=== PATIENT | male | born 1960 | race Caucasian/White ===

== ENCOUNTER 2020-10-19 15:59 | Inpatient (IN) | payer MEDICAID ==
[~2020-10-19] VITALS: Ht 180.3 cm; Wt 86.0 kg
[~2020-10-19 15:59] MED LIST: ALBU6.7H9 INH; CHOL2000 PO; CLOP75TA15 PO; FURO-150 PO; LANTUS SUBCUT; LISI40TA13 PO; METO-292 PO; METO100T14 PO; PANT20TA2 PO; PHEN100C12 PO; POTA10TA19 PO; SIMV-42 PO
[2020-10-19] MEDS ORDERED: normal saline 1000ML IV soln IVB ONE ×2 (16:30→16:45)
[2020-10-19] MEDS ORDERED: famotidine/PF 10 mg/ml inj IV ONE (16:45)
[2020-10-19] MEDS ORDERED: pantoprazole 40 MG vial IV ONE (16:45)
[2020-10-19] MEDS ORDERED: haloperidol lactate 5mg/ml inj IM ONE (16:45)
[2020-10-19] MEDS ORDERED: metoclopramide 5 mg/ml inj IV PRN (16:55)
[2020-10-19] MEDS ORDERED: acetaminophen 325mg tablet PO PRN ×2 (16:55)
[2020-10-19] MEDS: normal saline 1000ml 1,000 ML IV SCH (16:55)
[2020-10-19] MEDS ORDERED: mag hydrox/Alum hydrox/simeth 30ml oral suspension PO PRN (16:55)
[2020-10-19] MEDS ORDERED: magnesium hydroxide 30ml (MOM) UD suspension PO PRN (16:55)
[2020-10-19] MEDS ORDERED: morphine 2 MG/ML inj. syringe IV PRN ×2 (16:55)
[2020-10-19] MEDS ORDERED: CLON0.2T PO (17:05)
[2020-10-19] MEDS ORDERED: FURO40TA4 PO (17:05)
[2020-10-19] MEDS ORDERED: ASPI-12 PO (17:05)
[2020-10-19] MEDS ORDERED: SUCR1TAB PO (17:05)
[2020-10-19] MEDS ORDERED: HYDR100T27 PO (17:05)
[2020-10-19] MEDS ORDERED: LIDOcaine 2% 10ml TOPICAL JELLY (Urojet) MM ONE (18:00)
[2020-10-19 18:14] LABS: HEMOGLOBIN 10.8 g/dl (14.0-17.9); NEUTROPHILS # (AUTO) 7.4 X10'3 (1.8-7.7)
[2020-10-19 18:15] LABS: BASOPHILS # (AUTO) 0.1 X10'3 (0-0.2); BASOPHILS % (AUTO) 0.7 % (0-1); EOSINOPHILS # (AUTO) 0.1 X10'3 (0-0.9); EOSINOPHILS % (AUTO) 0.7 % (0-6); HEMATOCRIT 32.2 % (42.0-52.0); LYMPHOCYTES # (AUTO) 1.1 X10'3 (1.1-4.8); MEAN CORPUSCULAR HEMOGLOBIN 29.5 PG (27.0-31.0); MEAN CORPUSCULAR HGB CONC 33.5 g/dL (33.0-36.5); MEAN CORPUSCULAR VOLUME 88.1 FL (78-98); MEAN PLATELET VOLUME 9.4 FL (7.4-10.4); MONOCYTES # (AUTO) 0.5 X10'3 (0-0.9); MONOCYTES % (AUTO) 5.4 % (2-12); NEUTROPHILS % (AUTO) 81.2 % (42-75); PLATELET COUNT 247 X10'3 (140-440); RED BLOOD COUNT 3.66 X10'6 (4.70-6.10); RED CELL DISTRIBUTION WIDTH 13.3 % (11.5-14.5); WHITE BLOOD COUNT 9.1 X10'3 (4.5-11.0)
[2020-10-19 18:33] LABS: HEMOGLOBIN A1C 7.2 % (4.5-6.2)
[2020-10-19 18:37] LABS: ALANINE AMINOTRANSFERASE 18 U/L (12-78); ALBUMIN 2.8 G/DL (3.4-5.0); ALBUMIN/GLOBULIN RATIO 0.6 (1.1-1.5); ALKALINE PHOSPHATASE 83 IU/L (46-116); ANION GAP 17 (8-16); ASPARTATE AMINO TRANSFERASE 19 U/L (10-37); BILIRUBIN,TOTAL 0.2 MG/DL (0.1-1.0); BLOOD UREA NITROGEN 86 MG/DL (7-18); BUN/CREATININE RATIO 7.1 (5.4-32.0); CHLORIDE 103 MMOL/L (99-107); CREATININE 12.12 MG/DL (0.60-1.10); GLUCOSE 103 MG/DL (70-104); POTASSIUM 4.7 MMOL/L (3.5-5.1); SODIUM 136 MMOL/L (135-145); TOTAL CARBON DIOXIDE 16.2 MMOL/L (24-32); TOTAL PROTEIN 7.5 G/DL (6.4-8.2); eGFR 4 ML/MIN
[2020-10-19 18:49] LABS: PHOSPHORUS 9.4 MG/DL (2.3-4.5)
--- NOTE | 2020-10-19 20:30 | NUR ---
Received report from Zakiya BLOOD in the Er
--- NOTE | 2020-10-19 20:50 | NUR ---
pt arrived to floor, assumed care. 1999 rx late d/t transfer from the ER
[2020-10-19 21:00] VITALS: BP 206/92
[2020-10-19] MEDS: phenytoin sod ER 100mg capsule PO SCH (21:00)
[2020-10-19] MEDS: metoprolol tartrate 50mg tablet PO SCH (21:00)
[2020-10-19] MEDS: heparin, porcine 5000 units/ml vial SQ SCH (21:00)
[2020-10-19 22:00] VITALS: BP 189/87
[2020-10-19] MEDS: cloNIDine 0.1 mg tablet PO SCH (22:29)
[2020-10-19] MEDS: sucralfate 1 gm tablet PO SCH (22:29)
[2020-10-19] MEDS: pantoprazole 40mg Tablet.DR PO SCH (22:29)
[2020-10-19] MEDS: atorvastatin 20mg tablet PO SCH (22:29)
[2020-10-19] MEDS: hydrALAZINE 25 MG tablet PO SCH (23:27)
--- NOTE | 2020-10-19 23:30 | NUR ---
When pt arrived to unit bp was 206/92. 2000RX including bp medications administered and will continue to monitor.
[2020-10-20] VITALS (7 sets, daily range): BP systolic 112–170; BP diastolic 55–76
[2020-10-20] MEDS ORDERED: glucagon, human recombinant 1mg kit SUBCUT PRN (02:25)
[2020-10-20] MEDS ORDERED: dextrose ORAL solution 15 GM/59 ML bottle PO PRN ×2 (02:25)
[2020-10-20] MEDS ORDERED: MESSAGE TO PHARMACY PO ONE (02:25)
[2020-10-20] MEDS ORDERED: dextrose 50%-water 50ml dispensing syringe IV PRN ×2 (02:25)
[2020-10-20] MEDS: normal saline 1000ml 1,000 ML IV SCH (02:29)
--- NOTE | 2020-10-20 06:27 | NUR ---
Problems reprioritized. Patient report given, questions answered & plan of care reviewed with Rose BLOOD.
[2020-10-20] MEDS: phenytoin sod ER 100mg capsule PO SCH ×3 (09:56→20:42)
[2020-10-20] MEDS: aspirin 325mg tablet, delayed-release (Ecotrin) PO SCH (10:00)
[2020-10-20] MEDS: sucralfate 1 gm tablet PO SCH ×4 (10:00→20:42)
[2020-10-20] MEDS: hydrALAZINE 25 MG tablet PO SCH ×3 (10:01→23:37)
[2020-10-20] MEDS: metoprolol tartrate 50mg tablet PO SCH ×2 (10:02→20:43)
[2020-10-20] MEDS: clopidogrel 75mg tablet PO SCH (10:02)
[2020-10-20] MEDS: heparin, porcine 5000 units/ml vial SQ SCH ×2 (10:03→20:42)
[2020-10-20] MEDS: cloNIDine 0.1 mg tablet PO SCH ×3 (10:03→20:42)
[2020-10-20 11:16] LABS: BASOPHILS # (AUTO) 0.1 X10'3 (0-0.2); BASOPHILS % (AUTO) 0.9 % (0-1); EOSINOPHILS # (AUTO) 0.2 X10'3 (0-0.9); EOSINOPHILS % (AUTO) 2.8 % (0-6); HEMATOCRIT 30.7 % (42.0-52.0); HEMOGLOBIN 10.2 g/dl (14.0-17.9); LYMPHOCYTES # (AUTO) 1.5 X10'3 (1.1-4.8); LYMPHOCYTES % (AUTO) 18.7 % (21-51); MEAN CORPUSCULAR HEMOGLOBIN 29.6 PG (27.0-31.0); MEAN CORPUSCULAR HGB CONC 33.1 g/dL (33.0-36.5); MEAN CORPUSCULAR VOLUME 89.2 FL (78-98); MEAN PLATELET VOLUME 9.7 FL (7.4-10.4); MONOCYTES # (AUTO) 0.5 X10'3 (0-0.9); MONOCYTES % (AUTO) 6.2 % (2-12); NEUTROPHILS # (AUTO) 5.8 X10'3 (1.8-7.7); NEUTROPHILS % (AUTO) 71.4 % (42-75); PLATELET COUNT 248 X10'3 (140-440); RED BLOOD COUNT 3.44 X10'6 (4.70-6.10); RED CELL DISTRIBUTION WIDTH 13.9 % (11.5-14.5); WHITE BLOOD COUNT 8.1 X10'3 (4.5-11.0)
[2020-10-20 11:40] LABS: ALANINE AMINOTRANSFERASE 15 U/L (12-78); ALBUMIN 2.4 G/DL (3.4-5.0); ALBUMIN/GLOBULIN RATIO 0.5 (1.1-1.5); ALKALINE PHOSPHATASE 73 IU/L (46-116); ANION GAP 17 (8-16); ASPARTATE AMINO TRANSFERASE 13 U/L (10-37); BILIRUBIN,TOTAL 0.2 MG/DL (0.1-1.0); BLOOD UREA NITROGEN 85 MG/DL (7-18); CALCIUM 7.7 MG/DL (8.5-10.1); CHLORIDE 106 MMOL/L (99-107); CREATININE 12.06 MG/DL (0.60-1.10); GLUCOSE 90 MG/DL (70-104); MAGNESIUM 1.7 MG/DL (1.5-2.4); PHOSPHORUS 9.1 MG/DL (2.3-4.5); POTASSIUM 4.4 MMOL/L (3.5-5.1); SODIUM 139 MMOL/L (135-145); TOTAL CARBON DIOXIDE 16.5 MMOL/L (24-32); TOTAL PROTEIN 6.8 G/DL (6.4-8.2); eGFR 4 ML/MIN
[2020-10-20] MEDS: HYDROcodone/acetaminophen 5mg/325mg tablet PO PRN ×2 (11:42→16:46)
[2020-10-20] MEDS: sodium bicarbonate (8.4%) inj. 150 MEQ in dextrose 5%-water 1,000 ML IV SCH ×2 (12:00→23:31)
[2020-10-20] MEDS: ondansetron/PF 4mg/2ml inj IV PRN (12:32)
--- NOTE | 2020-10-20 15:54 | NUR ---
Pt with A1c 7.2% seen at bedside. Written DM education with RD contact information provided. Pt denies any questions about DM management at this time. Pt on a renal diet with poor PO intake, documented with 0% PO intake of meals with 100% PO intake of milk only. Pt reports a low appetite that has been ongoing for months. Pt unsure if he's has any weight loss or what his ABW is, reports UBW is 190 lbs. Current documented wt is 198 lbs using a bed scale. Pt with no visible fat or muscle wasting. RD obtained food preferences and d/w dietary, pt dislikes tomatoes and carrots. RD assisted pt with menu selection for dinner tonight. Pt requesting milk with dinner, RD educated patient on milk limitations given current renal status, pt verbalized understanding. Pt denies food allergies or difficulty chewing/swallowing. N/V improving per pt. Recommend continuing renal diet given current kidney status, BG range of 80-103 mg/dL since admit, and poor PO intake. Will continue to follow closely and make recommendations as appropriate. Addendum: 10/20/20 at [address] Amended: Links added.
[2020-10-20 16:50] LABS: CLARITY,URINE CLOUDY (Clear); COLOR,URINE YELLOW (Yellow); GLUCOSE, URINE 100 mg/dl (Neg); KETONES,URINE NEGATIVE (Neg); LEUKOCYTE ESTERASE ,URINE SMALL (Neg); NITRITES, URINE NEGATIVE (Neg); OCCULT BLOOD,URINE TRACE-INTACT (Neg); PROTEIN,URINE >=300 mg/dl (Neg); UROBILINOGEN,URINE 0.2 E.U/dL (0.2-1.0)
[2020-10-20 16:58] LABS: UA COLLECTION TYPE NON-SPECIFIED
[2020-10-20 16:59] LABS: RBC,URINE 0-2 /HPF (0-2); TOTAL PROTEIN,URINE RANDOM 606.7 MG/DL; WBC,URINE 50-100 /HPF (0-4)
[2020-10-20 17:00] LABS: AMORPHOUS URATES 1+; BACTERIA,URINE 1+ /HPF (Neg)
[2020-10-20 17:01] LABS: COARSE GRANULAR CAST 0-3 /LPF (NEGATIVE); SQUAMOUS EPITHELIAL CELL,UR FEW /LPF (FEW); WBC CLUMPS,URINE MODERATE /HPF (NEGATIVE)
--- NOTE | 2020-10-20 18:30 | NUR ---
Patient in room PCU 3012. I have received report from Rose BLOOD/ Jasiel BLOOD and had the opportunity to ask questions and assume patient care.
--- NOTE | 2020-10-20 20:40 | NUR ---
refused orthostatic vitals tonight Addendum: 10/21/20 at 0252 by Niki Mota RN Amended: Links added.
[2020-10-20] MEDS: pantoprazole 40mg Tablet.DR PO SCH (20:42)
[2020-10-20] MEDS: atorvastatin 20mg tablet PO SCH (20:42)
[2020-10-20] MEDS: insulin glargine (Lantus) pen - multi-dose SQ SCH (20:50)
--- NOTE | 2020-10-20 20:51 | NUR ---
Patient BS was 189 HS. With dinner BS 161 patient has met protocol but refusing to have insulin given.
[2020-10-21] VITALS (7 sets, daily range): BP systolic 121–156; BP diastolic 61–86
[2020-10-21] MEDS: ondansetron/PF 4mg/2ml inj IV PRN ×3 (02:32→16:02)
[2020-10-21] MEDS: sodium bicarbonate (8.4%) inj. 150 MEQ in dextrose 5%-water 1,000 ML IV SCH ×2 (02:50→08:29)
--- NOTE | 2020-10-21 06:12 | NUR ---
Problems reprioritized. Patient report given, questions answered & plan of care reviewed with Lenore RN.
--- NOTE | 2020-10-21 06:37 | NUR ---
Patient in room PCU 3012. I have received report from [facility] and had the opportunity to ask questions and assume patient care.
[2020-10-21 06:41] LABS: BASOPHILS % (AUTO) 0.7 % (0-1); EOSINOPHILS # (AUTO) 0.3 X10'3 (0-0.9); EOSINOPHILS % (AUTO) 3.7 % (0-6); HEMATOCRIT 28.8 % (42.0-52.0); HEMOGLOBIN 9.7 g/dl (14.0-17.9); LYMPHOCYTES # (AUTO) 1.1 X10'3 (1.1-4.8); LYMPHOCYTES % (AUTO) 15.6 % (21-51); MEAN CORPUSCULAR HEMOGLOBIN 29.6 PG (27.0-31.0); MEAN CORPUSCULAR HGB CONC 33.7 g/dL (33.0-36.5); MEAN PLATELET VOLUME 9.6 FL (7.4-10.4); MONOCYTES # (AUTO) 0.5 X10'3 (0-0.9); MONOCYTES % (AUTO) 7.4 % (2-12); NEUTROPHILS # (AUTO) 5.2 X10'3 (1.8-7.7); NEUTROPHILS % (AUTO) 72.6 % (42-75); PLATELET COUNT 224 X10'3 (140-440); RED BLOOD COUNT 3.28 X10'6 (4.70-6.10); RED CELL DISTRIBUTION WIDTH 13.4 % (11.5-14.5); WHITE BLOOD COUNT 7.2 X10'3 (4.5-11.0)
[2020-10-21 06:53] LABS: ALBUMIN 2.2 G/DL (3.4-5.0); ANION GAP 15 (8-16); BLOOD UREA NITROGEN 85 MG/DL (7-18); BUN/CREATININE RATIO 6.9 (5.4-32.0); CALCIUM 7.4 MG/DL (8.5-10.1); CHLORIDE 101 MMOL/L (99-107); CREATININE 12.25 MG/DL (0.60-1.10); GLUCOSE 195 MG/DL (70-104); MAGNESIUM 1.7 MG/DL (1.5-2.4); PHOSPHORUS 7.8 MG/DL (2.3-4.5); POTASSIUM 3.4 MMOL/L (3.5-5.1); SODIUM 135 MMOL/L (135-145); TOTAL CARBON DIOXIDE 19.5 MMOL/L (24-32); eGFR 4 ML/MIN
[2020-10-21] MEDS: metoprolol tartrate 50mg tablet PO SCH ×2 (08:00→20:08)
[2020-10-21] MEDS: cloNIDine 0.1 mg tablet PO SCH ×3 (08:20→20:09)
[2020-10-21] MEDS: aspirin 325mg tablet, delayed-release (Ecotrin) PO SCH (08:20)
[2020-10-21] MEDS: sucralfate 1 gm tablet PO SCH ×4 (08:20→20:06)
[2020-10-21] MEDS: hydrALAZINE 25 MG tablet PO SCH ×2 (08:21→16:01)
[2020-10-21] MEDS: phenytoin sod ER 100mg capsule PO SCH ×3 (08:21→20:09)
[2020-10-21] MEDS: clopidogrel 75mg tablet PO SCH (08:21)
[2020-10-21] MEDS: heparin, porcine 5000 units/ml vial SQ SCH ×2 (08:24→20:08)
[2020-10-21] MEDS ORDERED: nicotine 14mg patch - 24hr TD ONE (10:30)
[2020-10-21 11:12] LABS: PHENYTOIN (DILANTIN) 1.6 UG/ML (10.0-20.0)
[2020-10-21] MEDS: metoclopramide 5 mg/ml inj IV PRN (11:49)
--- NOTE | 2020-10-21 12:24 | NUR ---
Dr. Manrique rounded on patient. Verbal order given to stop IV fluids. IV fluids DC'd and taken down.
--- NOTE | 2020-10-21 12:38 | NUR ---
PT SEEN BY ATTENDING AND NEPHRO , BOTH AWARE OF POTASSIUM 3.4 NO NEW ORDERS. PT IVF STOPPED AND ORDERS PLACED TO HAVE A DIALYSIS ACCESS PLACED AND START HEMODIALYSIS . CALL MELO IN REACH WILL MONITOR
[2020-10-21] MEDS: insulin Lispro (HumaLOG) vial - multi-dose SQ SCH ×2 (14:30→20:15)
[2020-10-21] MEDS: HYDROcodone/acetaminophen 5mg/325mg tablet PO PRN (16:02)
--- NOTE | 2020-10-21 17:45 | NUR ---
End of shift rounds completed . pt asleep , resp even and labored. pt still awaiting for dialysis access and treatment . poor appetite due to nausea. call rosen in reach will monitor
--- NOTE | 2020-10-21 18:00 | NUR ---
Patient in room PCU 3012. I have received report from Lenore RN and had the opportunity to ask questions and assume patient care.
[2020-10-21] MEDS: atorvastatin 20mg tablet PO SCH (20:08)
[2020-10-21] MEDS: pantoprazole 40mg Tablet.DR PO SCH (20:09)
[2020-10-21] MEDS: insulin glargine (Lantus) pen - multi-dose SQ SCH (22:17)
[2020-10-22] VITALS (7 sets, daily range): BP systolic 103–149; BP diastolic 48–77
[2020-10-22] MEDS: hydrALAZINE 25 MG tablet PO SCH ×3 (00:50→16:00)
[2020-10-22] MEDS: metoclopramide 5 mg/ml inj IV PRN (05:13)
--- NOTE | 2020-10-22 06:23 | NUR ---
Patient in room PCU 3012. I have received report from Kary and had the opportunity to ask questions and assume patient care.
--- NOTE | 2020-10-22 06:23 | NUR ---
Problems reprioritized. Patient report given, questions answered & plan of care reviewed with Lenore RN.
[2020-10-22 06:44] LABS: BASOPHILS % (AUTO) 0.6 % (0-1); EOSINOPHILS # (AUTO) 0.2 X10'3 (0-0.9); EOSINOPHILS % (AUTO) 2.5 % (0-6); HEMATOCRIT 28.7 % (42.0-52.0); HEMOGLOBIN 9.9 g/dl (14.0-17.9); LYMPHOCYTES # (AUTO) 0.9 X10'3 (1.1-4.8); LYMPHOCYTES % (AUTO) 12.3 % (21-51); MEAN CORPUSCULAR HEMOGLOBIN 29.8 PG (27.0-31.0); MEAN CORPUSCULAR HGB CONC 34.4 g/dL (33.0-36.5); MEAN CORPUSCULAR VOLUME 86.8 FL (78-98); MEAN PLATELET VOLUME 9.7 FL (7.4-10.4); MONOCYTES # (AUTO) 0.6 X10'3 (0-0.9); MONOCYTES % (AUTO) 7.3 % (2-12); NEUTROPHILS # (AUTO) 5.9 X10'3 (1.8-7.7); NEUTROPHILS % (AUTO) 77.3 % (42-75); PLATELET COUNT 225 X10'3 (140-440); RED CELL DISTRIBUTION WIDTH 13.5 % (11.5-14.5); WHITE BLOOD COUNT 7.7 X10'3 (4.5-11.0)
[2020-10-22 07:10] LABS: ALBUMIN 2.3 G/DL (3.4-5.0); ANION GAP 14 (8-16); BLOOD UREA NITROGEN 82 MG/DL (7-18); BUN/CREATININE RATIO 6.6 (5.4-32.0); CALCIUM 7.8 MG/DL (8.5-10.1); CHLORIDE 99 MMOL/L (99-107); GLUCOSE 143 MG/DL (70-104); MAGNESIUM 1.8 MG/DL (1.5-2.4); PHOSPHORUS 7.8 MG/DL (2.3-4.5); POTASSIUM 3.6 MMOL/L (3.5-5.1); SODIUM 136 MMOL/L (135-145); TOTAL CARBON DIOXIDE 22.6 MMOL/L (24-32); eGFR 4 ML/MIN
[2020-10-22] MEDS: aspirin 325mg tablet, delayed-release (Ecotrin) PO SCH (08:00)
[2020-10-22] MEDS: heparin, porcine 5000 units/ml vial SQ SCH ×2 (08:00→19:08)
[2020-10-22] MEDS: clopidogrel 75mg tablet PO SCH (08:00)
[2020-10-22] MEDS: sucralfate 1 gm tablet PO SCH ×4 (08:00→21:17)
[2020-10-22] MEDS: phenytoin sod ER 100mg capsule PO SCH ×3 (08:50→21:17)
[2020-10-22] MEDS: cloNIDine 0.1 mg tablet PO SCH ×3 (08:50→21:17)
[2020-10-22] MEDS: metoprolol tartrate 50mg tablet PO SCH ×2 (08:51→19:08)
[2020-10-22] MEDS: nicotine 14mg patch - 24hr TD SCH (08:51)
[2020-10-22] MEDS: ondansetron/PF 4mg/2ml inj IV PRN (08:52)
[2020-10-22] MEDS: insulin Lispro (HumaLOG) vial - multi-dose SQ SCH ×2 (09:05→19:17)
[2020-10-22] MEDS ORDERED: heparin 1,000unit/ml 10ml vial 10 ML ONE (09:57)
[2020-10-22] MEDS ORDERED: LIDOcaine 1%/PF 5ML 10 MG/ML VIAL ONE (09:57)
[2020-10-22] MEDS ORDERED: midazolam 2 mg/2 ml injection ONE (09:57)
[2020-10-22] MEDS ORDERED: fentaNYL/PF 50MCG/1 ML 2ML syringe ONE (09:58)
--- NOTE | 2020-10-22 10:30 | NUR ---
pt being transported to angio room for tdc placement
[2020-10-22] MEDS ORDERED: ondansetron/PF 4mg/2ml inj ONE (10:33)
[2020-10-22] MEDS ORDERED: normal saline 1000ml 250 ML IV PRN (11:50)
[2020-10-22] MEDS ORDERED: heparin 1,000unit/ml 10ml vial 10 ML IV ONE (11:50)
[2020-10-22] MEDS ORDERED: heparin 1,000 units/ml 10ml inj HE ONE ×2 (11:55)
--- NOTE | 2020-10-22 12:24 | NUR ---
pt noted to be bleeding from TdC access. pressure gauze applied and angio team notified . will come up and access
[2020-10-22] MEDS: HYDROcodone/acetaminophen 5mg/325mg tablet PO PRN (17:42)
--- NOTE | 2020-10-22 18:45 | NUR ---
Patient in room PCU 3012. I have received report from JEREMI Grover and had the opportunity to ask questions and assume patient care.
[2020-10-22] MEDS: atorvastatin 20mg tablet PO SCH (21:16)
[2020-10-22] MEDS: pantoprazole 40mg Tablet.DR PO SCH (21:17)
[2020-10-22] MEDS: insulin glargine (Lantus) pen - multi-dose SQ SCH (21:23)
[2020-10-23] VITALS (8 sets, daily range): BP systolic 88–149; BP diastolic 55–84
--- NOTE | 2020-10-23 06:18 | NUR ---
Problems reprioritized. Patient report given, questions answered & plan of care reviewed with JEREMI Grover.
--- NOTE | 2020-10-23 06:26 | NUR ---
Patient in room PCU 3012. I have received report from Yolanda and had the opportunity to ask questions and assume patient care.
[2020-10-23 06:58] LABS: BASOPHILS # (AUTO) 0.1 X10'3 (0-0.2); BASOPHILS % (AUTO) 0.6 % (0-1); EOSINOPHILS # (AUTO) 0.3 X10'3 (0-0.9); EOSINOPHILS % (AUTO) 3.3 % (0-6); HEMATOCRIT 29.4 % (42.0-52.0); HEMOGLOBIN 10.1 g/dl (14.0-17.9); LYMPHOCYTES # (AUTO) 1.4 X10'3 (1.1-4.8); LYMPHOCYTES % (AUTO) 15.4 % (21-51); MEAN CORPUSCULAR HEMOGLOBIN 29.8 PG (27.0-31.0); MEAN CORPUSCULAR HGB CONC 34.4 g/dL (33.0-36.5); MEAN CORPUSCULAR VOLUME 86.4 FL (78-98); MEAN PLATELET VOLUME 9.8 FL (7.4-10.4); MONOCYTES # (AUTO) 0.8 X10'3 (0-0.9); MONOCYTES % (AUTO) 9.6 % (2-12); NEUTROPHILS # (AUTO) 6.3 X10'3 (1.8-7.7); NEUTROPHILS % (AUTO) 71.1 % (42-75); PLATELET COUNT 217 X10'3 (140-440); RED CELL DISTRIBUTION WIDTH 13.6 % (11.5-14.5); WHITE BLOOD COUNT 8.8 X10'3 (4.5-11.0)
[2020-10-23 07:34] LABS: ALBUMIN 2.4 G/DL (3.4-5.0); ANION GAP 11 (8-16); BLOOD UREA NITROGEN 47 MG/DL (7-18); BUN/CREATININE RATIO 5.3 (5.4-32.0); CHLORIDE 100 MMOL/L (99-107); CREATININE 8.89 MG/DL (0.60-1.10); GLUCOSE 124 MG/DL (70-104); MAGNESIUM 1.8 MG/DL (1.5-2.4); POTASSIUM 3.8 MMOL/L (3.5-5.1); SODIUM 137 MMOL/L (135-145); TOTAL CARBON DIOXIDE 26.4 MMOL/L (24-32); eGFR 6 ML/MIN
[2020-10-23] MEDS: phenytoin sod ER 100mg capsule PO SCH ×3 (07:54→20:48)
[2020-10-23] MEDS: aspirin 325mg tablet, delayed-release (Ecotrin) PO SCH (07:55)
[2020-10-23] MEDS: metoprolol tartrate 50mg tablet PO SCH ×2 (07:55→20:00)
[2020-10-23] MEDS: hydrALAZINE 25 MG tablet PO SCH ×3 (07:55→17:07)
[2020-10-23] MEDS: cloNIDine 0.1 mg tablet PO SCH ×3 (07:55→20:47)
[2020-10-23] MEDS: clopidogrel 75mg tablet PO SCH (07:56)
[2020-10-23] MEDS: sucralfate 1 gm tablet PO SCH ×4 (07:56→20:48)
[2020-10-23] MEDS: ondansetron/PF 4mg/2ml inj IV PRN (07:56)
[2020-10-23] MEDS: nicotine 14mg patch - 24hr TD SCH (07:57)
[2020-10-23] MEDS: heparin, porcine 5000 units/ml vial SQ SCH ×2 (07:57→19:22)
[2020-10-23] MEDS ORDERED: heparin 1,000unit/ml 10ml vial 10 ML IV ONE (09:10)
[2020-10-23] MEDS ORDERED: normal saline 1000ml 250 ML IV PRN (09:10)
[2020-10-23] MEDS ORDERED: heparin 1,000 units/ml 10ml inj HE ONE ×2 (09:15)
--- NOTE | 2020-10-23 14:14 | NUR ---
nurse in on rounds and pt stated he didnt want his meds at this time , feels nauseated . pt wants to try to wait
--- NOTE | 2020-10-23 15:17 | NUR ---
Initial: Patient is transfer from [facility]. Phosphorus is trending down from 9.4 to 5; on renal/carb controlled diet. S/p placement of TDC for HD d/t chronic renal failure. Admit with tubular necrosis, h/o HTN, DM, HLD, CAD per MD progress note. Eating 0-25% of meals, visited patient at bedside and observed that he ate 25% of protein. Patient states he has snacks throughout the day and does not eat large meals with his largest meal being a bowl of cereal. States that he is not hungry, however did receive anti nausea medication this morning. Pt requested to be seen by dietary d/t not being able to read his menu, d/w dietary. Pt also information to give to his sister regarding nutrition and dialysis, provided written handout and RD contact information. Recommend: 1. continue renal/carb controlled diet 2. weight per rx 3. bowel care as needed Addendum: 10/23/20 at [address] Amended: Links added.
[2020-10-23] MEDS: HYDROcodone/acetaminophen 5mg/325mg tablet PO PRN (15:27)
--- NOTE | 2020-10-23 16:03 | NUR ---
PAGER ID: [phone] MESSAGE: pcu [id number] (QUIANA) FINALLY GOT AN ORTHOSTATIC BP ON HIM AND HIS STANDING DROPS DOWN TREMENDOUSLY. results in computer
--- NOTE | 2020-10-23 17:40 | NUR ---
End of shift rounds completed. pt tolerated dialysis . med as needed for pain and nausea. pt occassionally will refuse meds. md notified of ortho bp's . call rosen in reach will monitor
--- NOTE | 2020-10-23 18:39 | NUR ---
Patient in room PCU 3012. I have received report from JEREMI Grover and had the opportunity to ask questions and assume patient care.
--- NOTE | 2020-10-23 19:00 | NUR ---
rec'd a phone call from pt family stating he was very anxious and wanted to leave. he stated he was feeling very antsy, like he needs to get out of here. Notified MD, awaiting return call or orders
[2020-10-23] MEDS ORDERED: haloperidol 5mg tablet PO ONE (19:20)
[2020-10-23] MEDS ORDERED: sertraline 50mg tablet PO ONE (19:20)
[2020-10-23] MEDS: insulin Lispro (HumaLOG) vial - multi-dose SQ SCH (19:32)
[2020-10-23] MEDS: pantoprazole 40mg Tablet.DR PO SCH (20:48)
[2020-10-23] MEDS: atorvastatin 20mg tablet PO SCH (20:48)
[2020-10-23 20:53] LABS: A/G RATIO 0.7 (0.7-1.7); ALBUMIN 2.3 g/dL (2.9-4.4); BETA GLOBULIN 0.8 g/dL (0.7-1.3); GLOBULIN, TOTAL 3.1 g/dL (2.2-3.9); M-SPIKE Not Observed g/dL (Not Observed); PROTEIN, TOTAL, SERUM 5.4 g/dL (6.0-8.5)
[2020-10-23] MEDS: insulin glargine (Lantus) pen - multi-dose SQ SCH (20:56)
--- NOTE | 2020-10-23 22:28 | NUR ---
Orthostatic Vitals Unable to complete the standing portion of the orthostatic vitals. He was feeling dizzy and nauseous.
[2020-10-24] VITALS (8 sets, daily range): BP systolic 85–169; BP diastolic 38–82
--- NOTE | 2020-10-24 00:30 | NUR ---
Pt was sweating and lethargic, checked blood glucose. BG was 43. Administered 50mL of Dextrose IV. Checked again 15 min later, BG was 167. checked again in 30 min, BG was 155.
[2020-10-24] MEDS: hydrALAZINE 25 MG tablet PO SCH ×3 (03:31→16:43)
--- NOTE | 2020-10-24 06:06 | NUR ---
Problems reprioritized. Patient report given, questions answered & plan of care reviewed with JEREMI Grover.
[2020-10-24] MEDS: phenytoin sod ER 100mg capsule PO SCH ×3 (07:30→21:09)
[2020-10-24] MEDS: sertraline 50mg tablet PO SCH (07:31)
[2020-10-24] MEDS: cloNIDine 0.1 mg tablet PO SCH ×3 (07:31→21:00)
[2020-10-24] MEDS: clopidogrel 75mg tablet PO SCH (07:32)
[2020-10-24] MEDS: nicotine 14mg patch - 24hr TD SCH (07:32)
[2020-10-24] MEDS: aspirin 325mg tablet, delayed-release (Ecotrin) PO SCH (07:32)
[2020-10-24] MEDS: metoprolol tartrate 50mg tablet PO SCH ×2 (07:32→21:07)
[2020-10-24] MEDS: heparin, porcine 5000 units/ml vial SQ SCH ×2 (07:33→21:10)
[2020-10-24 07:57] LABS: BASOPHILS % (AUTO) 0.5 % (0-1); EOSINOPHILS # (AUTO) 0.1 X10'3 (0-0.9); EOSINOPHILS % (AUTO) 1.5 % (0-6); HEMATOCRIT 30.4 % (42.0-52.0); HEMOGLOBIN 10.3 g/dl (14.0-17.9); LYMPHOCYTES # (AUTO) 1.8 X10'3 (1.1-4.8); LYMPHOCYTES % (AUTO) 20.6 % (21-51); MEAN CORPUSCULAR HEMOGLOBIN 29.5 PG (27.0-31.0); MEAN CORPUSCULAR HGB CONC 33.7 g/dL (33.0-36.5); MEAN CORPUSCULAR VOLUME 87.6 FL (78-98); MEAN PLATELET VOLUME 9.9 FL (7.4-10.4); MONOCYTES # (AUTO) 0.9 X10'3 (0-0.9); MONOCYTES % (AUTO) 10.7 % (2-12); NEUTROPHILS # (AUTO) 5.7 X10'3 (1.8-7.7); NEUTROPHILS % (AUTO) 66.7 % (42-75); PLATELET COUNT 218 X10'3 (140-440); RED BLOOD COUNT 3.48 X10'6 (4.70-6.10); RED CELL DISTRIBUTION WIDTH 13.5 % (11.5-14.5); WHITE BLOOD COUNT 8.5 X10'3 (4.5-11.0)
[2020-10-24] MEDS: sucralfate 1 gm tablet PO SCH ×4 (08:00→21:08)
[2020-10-24 08:45] LABS: ALBUMIN 2.4 G/DL (3.4-5.0); ANION GAP 9 (8-16); BLOOD UREA NITROGEN 34 MG/DL (7-18); BUN/CREATININE RATIO 5.1 (5.4-32.0); CALCIUM 8.6 MG/DL (8.5-10.1); CHLORIDE 102 MMOL/L (99-107); CREATININE 6.68 MG/DL (0.60-1.10); GLUCOSE 139 MG/DL (70-104); MAGNESIUM 1.9 MG/DL (1.5-2.4); PHOSPHORUS 4.5 MG/DL (2.3-4.5); POTASSIUM 3.9 MMOL/L (3.5-5.1); SODIUM 139 MMOL/L (135-145); TOTAL CARBON DIOXIDE 28.5 MMOL/L (24-32); eGFR 9 ML/MIN
[2020-10-24] MEDS: insulin Lispro (HumaLOG) vial - multi-dose SQ SCH ×2 (13:30→19:15)
[2020-10-24] MEDS: HYDROcodone/acetaminophen 5mg/325mg tablet PO PRN (13:31)
[2020-10-24 17:23] LABS: ANTINUCLEAR ANTIBODIES Negative (Negative)
[2020-10-24 17:23] LABS: HBSAG SCREEN Negative (Negative); HEP B CORE AB, TOT Positive (Negative)
--- NOTE | 2020-10-24 18:26 | NUR ---
PAGER ID: [phone] MESSAGE: [id number] room 3012B (Josue) can you place a prn order for anxiety medication. pt is up and down out of bed and says he is very anxious and restless thank you
--- NOTE | 2020-10-24 18:40 | NUR ---
Patient in room PCU 3012. I have received report from Lenore RN and had the opportunity to ask questions and assume patient care.
[2020-10-24] MEDS ORDERED: diphenhydrAMINE 25mg capsule PO PRN (20:55)
[2020-10-24] MEDS: pantoprazole 40mg Tablet.DR PO SCH (21:08)
[2020-10-24] MEDS: atorvastatin 20mg tablet PO SCH (21:08)
[2020-10-24] MEDS: insulin glargine (Lantus) pen - multi-dose SQ SCH (22:42)
[2020-10-25] MEDS: hydrALAZINE 25 MG tablet PO SCH ×3 (00:49→16:00)
[2020-10-25 02:00] VITALS: BP 147/68
[2020-10-25 06:12] LABS: BASOPHILS # (AUTO) 0.1 X10'3 (0-0.2); BASOPHILS % (AUTO) 0.7 % (0-1); EOSINOPHILS # (AUTO) 0.3 X10'3 (0-0.9); EOSINOPHILS % (AUTO) 3.4 % (0-6); HEMATOCRIT 30.2 % (42.0-52.0); HEMOGLOBIN 10.1 g/dl (14.0-17.9); LYMPHOCYTES # (AUTO) 2.1 X10'3 (1.1-4.8); LYMPHOCYTES % (AUTO) 25.4 % (21-51); MEAN CORPUSCULAR HEMOGLOBIN 29.6 PG (27.0-31.0); MEAN CORPUSCULAR HGB CONC 33.6 g/dL (33.0-36.5); MEAN CORPUSCULAR VOLUME 88.1 FL (78-98); MEAN PLATELET VOLUME 9.9 FL (7.4-10.4); MONOCYTES # (AUTO) 0.8 X10'3 (0-0.9); MONOCYTES % (AUTO) 9.4 % (2-12); NEUTROPHILS # (AUTO) 5.1 X10'3 (1.8-7.7); NEUTROPHILS % (AUTO) 61.1 % (42-75); PLATELET COUNT 215 X10'3 (140-440); RED BLOOD COUNT 3.43 X10'6 (4.70-6.10); RED CELL DISTRIBUTION WIDTH 13.4 % (11.5-14.5); WHITE BLOOD COUNT 8.3 X10'3 (4.5-11.0)
[2020-10-25 06:26] LABS: ALBUMIN 2.5 G/DL (3.4-5.0); ANION GAP 10 (8-16); BLOOD UREA NITROGEN 40 MG/DL (7-18); BUN/CREATININE RATIO 5.3 (5.4-32.0); CALCIUM 8.4 MG/DL (8.5-10.1); CHLORIDE 102 MMOL/L (99-107); CREATININE 7.57 MG/DL (0.60-1.10); GLUCOSE 116 MG/DL (70-104); PHOSPHORUS 3.9 MG/DL (2.3-4.5); POTASSIUM 3.7 MMOL/L (3.5-5.1); SODIUM 140 MMOL/L (135-145); TOTAL CARBON DIOXIDE 27.8 MMOL/L (24-32); eGFR 7 ML/MIN
--- NOTE | 2020-10-25 06:49 | NUR ---
Problems reprioritized. Patient report given, questions answered & plan of care reviewed with Lenore RN.
[2020-10-25 07:03] VITALS: BP 134/66
[2020-10-25 08:00] VITALS: BP_SYST 125; BP_SYST 146; BP_SYST 167; BP_DIAS 48; BP_DIAS 70; BP_DIAS 77
[2020-10-25] MEDS ORDERED: albumin (human) 25% 100ml IV 100 ML IV PRN ×2 (08:00)
[2020-10-25] MEDS ORDERED: heparin 1,000 units/ml 10ml inj IV ONE ×2 (08:00)
[2020-10-25] MEDS ORDERED: heparin 1,000 units/ml 10ml inj HE ONE ×6 (08:00→11:33)
[2020-10-25] MEDS ORDERED: heparin 1,000unit/ml 10ml vial 10 ML IV ONE ×3 (08:00→11:35)
[2020-10-25] MEDS ORDERED: epoetin 20,000 units/ml inj IV ONE (08:00)
[2020-10-25] MEDS: phenytoin sod ER 100mg capsule PO SCH ×2 (08:54→13:41)
[2020-10-25] MEDS: metoprolol tartrate 50mg tablet PO SCH (08:55)
[2020-10-25] MEDS: clopidogrel 75mg tablet PO SCH (08:55)
[2020-10-25] MEDS: cloNIDine 0.1 mg tablet PO SCH ×2 (08:55→13:41)
[2020-10-25] MEDS: sertraline 50mg tablet PO SCH (08:55)
[2020-10-25] MEDS: sucralfate 1 gm tablet PO SCH ×3 (08:55→17:00)
[2020-10-25] MEDS: heparin, porcine 5000 units/ml vial SQ SCH (08:56)
[2020-10-25] MEDS: nicotine 14mg patch - 24hr TD SCH (08:56)
[2020-10-25] MEDS: aspirin 325mg tablet, delayed-release (Ecotrin) PO SCH (08:56)
[2020-10-25] MEDS: insulin Lispro (HumaLOG) vial - multi-dose SQ SCH ×2 (09:07→13:44)
[2020-10-25] MEDS: HYDROcodone/acetaminophen 5mg/325mg tablet PO PRN (11:48)
[2020-10-25 12:16] VITALS: BP 148/67
--- NOTE | 2020-10-25 16:03 | NUR ---
PAGER ID: [phone] MESSAGE: [facility] room 3012b (berta) can you put the discharge order in for him , dialysis outpatient have been set up and treatment today is done , cm put instructions in already
[2020-10-25] MEDS ORDERED: NICO-631 TD (16:43)
[2020-10-25] MEDS ORDERED: SERT-433 PO (16:43)
[2020-10-25 16:49] VITALS: BP 112/72
[2020-10-25] MEDS ORDERED: NITR-79 PO (16:56)
--- NOTE | 2020-10-25 17:33 | NUR ---
PT BEING DISCHARGED TO HOME. INT REMOVED AND DISCHARGE INSTRUCTIONS REVIEWED WITH PATIENT AND HE VOICED UNDERSTANDING. PT REQUEST TRANSPORTATION HOME AND TRANSPORTATION ARRANGED THROUGH [facility] BY THIS [employer]. [employer] SCHEDULED FOR 1999PM . 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
== END 2020-10-25 17:43 | disposition home or self-care (01) | DRG 422 ==
LOC: ER 15:59 → ED HOLD 16:52 → PCU 3S 20:40
PROVIDERS: ADMIT Internal Medicine; ATTEND Internal Medicine
PROC: 0JH63XZ Insertion of Tunneled Vascular Access Device into Chest Subcutaneous Tissue and Fascia, Percutaneous Approach (ICD-10-PCS; principal; 2020-10-22)
PROC: 02H633Z Insertion of Infusion Device into Right Atrium, Percutaneous Approach (ICD-10-PCS; 2020-10-22)
PROC: B548ZZA Ultrasonography of Superior Vena Cava, Guidance (ICD-10-PCS; 2020-10-22)
PROC: 5A1D70Z Performance of Urinary Filtration, Intermittent, Less than 6 Hours Per Day (ICD-10-PCS; 2020-10-22)
PROC: 5A1D70Z Performance of Urinary Filtration, Intermittent, Less than 6 Hours Per Day (ICD-10-PCS; 2020-10-23)
PROC: 5A1D70Z Performance of Urinary Filtration, Intermittent, Less than 6 Hours Per Day (ICD-10-PCS; 2020-10-25)
DX: E86.0 Dehydration (principal); N17.0 Acute kidney failure with tubular necrosis; E11.22 Type 2 diabetes mellitus with diabetic chronic kidney disease; E78.5 Hyperlipidemia, unspecified; E87.2 Acidosis; F12.90 Cannabis use, unspecified, uncomplicated; F17.210 Nicotine dependence, cigarettes, uncomplicated; G40.909 Epilepsy, unspecified, not intractable, without status epilepticus; I12.0 Hypertensive chronic kidney disease with stage 5 chronic kidney disease or end stage renal disease; I25.10 Atherosclerotic heart disease of native coronary artery without angina pectoris; G43.909 Migraine, unspecified, not intractable, without status migrainosus; K29.00 Acute gastritis without bleeding; R19.7 Diarrhea, unspecified; N18.6 End stage renal disease; N39.0 Urinary tract infection, site not specified; Z87.442 Personal history of urinary calculi; Z86.73 Personal history of transient ischemic attack (TIA), and cerebral infarction without residual deficits; Z90.49 Acquired absence of other specified parts of digestive tract; Z88.0 Allergy status to penicillin; Z88.5 Allergy status to narcotic agent; Z79.899 Other long term (current) drug therapy; Z71.6 Tobacco abuse counseling
CPT/HCPCS: 36415; 36558; 71045; 76775; 76937; 77001; 80048; 80053; 80185; 81001; 82570; 82948; 83036; 83605; 83735; 83880; 84100; 84145; 84155; 84156; 84165; 84300; 84443; 85025; 86038; 86704; 86706; 87040; 87081; 87207; 87340; 90935; 93306; 93308; 96374; 96375; 99285; A9270; C1750; C1769; C1894; C9113; G0378; J1630; J1644; J1815; J2150; J2250; J2270; J2405; J2765; J3010; J3490; J7030; Q0163; Q4081

== ENCOUNTER 2021-03-26 22:14 | Emergency (ER) | payer MEDICAID ==
[~2021-03-26] VITALS: Ht 180.3 cm; Wt 84.0 kg
[~2021-03-26 22:14] MED LIST changes: -ALBU6.7H9 INH; +ASPI-12 PO; -CHOL2000 PO; +CLON0.2T PO; -FURO-150 PO; +FURO40TA4 PO; +HYDR100T27 PO; -LISI40TA13 PO; -METO-292 PO; +NICO-631 TD; +NITR-79 PO; +SERT-433 PO; +SUCR1TAB PO
[2021-03-26 22:34] VITALS: BP 134/78
[2021-03-26] MEDS ORDERED: haloperidol lactate 5mg/ml inj IM ONE (23:15)
[2021-03-26] MEDS ORDERED: diphenhydrAMINE 50 mg/ml inj IM ONE (23:15)
[2021-03-26] MEDS ORDERED: HYDROcodone/acetaminophen 10/325mg tab PO ONE (23:30)
== END 2021-03-27 00:42 | disposition home or self-care (01) ==
LOC: ER 22:15
DX: R11.2 Nausea with vomiting, unspecified (principal); K31.84 Gastroparesis; E11.9 Type 2 diabetes mellitus without complications; N18.9 Chronic kidney disease, unspecified; F12.90 Cannabis use, unspecified, uncomplicated; Z56.0 Unemployment, unspecified; Z88.5 Allergy status to narcotic agent; Z88.8 Allergy status to other drugs, medicaments and biological substances; Z79.82 Long term (current) use of aspirin; Z79.899 Other long term (current) drug therapy
CPT/HCPCS: 96372; 99284; J1200; J1630